=== PATIENT | male | born 1960 | race Caucasian/White ===

== ENCOUNTER 2021-06-18 11:57 | Emergency (ER) | payer MEDICAID ==
[~2021-06-18] VITALS: Ht 188 cm; Wt 98.3 kg
[2021-06-18 14:12] LABS: BASOPHILS % (AUTO) 0 % (0-1); EOSINOPHILS % (AUTO) 2 % (1-7); LYMPHOCYTES % (AUTO) 26 % (22-44); MEAN CORPUSCULAR HEMOGLOBIN 34.2 pg (27.5-34.5); MEAN CORPUSCULAR HGB CONC 35.1 g/dL (33.2-36.2); MEAN PLATELET VOLUME 9.3 fL (7.4-10.4); MONOCYTES % (AUTO) 8 % (2-9); NEUTROPHILS % (AUTO) 64 % (42-75); PLATELET COUNT 228 x10^3/uL (130-400); RED BLOOD COUNT 4.71 x10^6/uL (4.38-5.82); RED CELL DISTRIBUTION WIDTH 13.3 % (9.4-14.8)
[2021-06-18 14:14] LABS: ALANINE AMINOTRANSFERASE 55 U/L (12-78); ALBUMIN 3.7 g/dL (3.4-5.0); ANION GAP 4 mmol/L (5-15); CALCIUM 9.2 mg/dL (8.5-10.1); CHLORIDE 108 mmol/L (98-107); CREATININE 1.01 mg/dL (0.7-1.3)
[2021-06-18 14:18] LABS: ALKALINE PHOSPHATASE 59 U/L (45-117); BILIRUBIN,TOTAL 0.4 mg/dL (0.2-1.0); TOTAL PROTEIN 7.9 g/dL (6.4-8.2); TROPONIN I < 0.015 ng/mL (0.000-0.045)
--- NOTE | 2021-06-18 14:43 | NUR ---
[facility] ROOM MANAGER: PT TO ROOM FROM LOBBY
--- NOTE | 2021-06-18 14:55 | NUR ---
FIRST CONTACT: PT HAD OSTOMY PLACED 2 YEARS AGO AND IT HAS SINCE BEEN REMOVED. PT CAME IN TODAY CO LLQ ABD PAIN STARTED YESTERDAY. PT TO ROOM WITH STEADY GAIT. POSTIONED TO COMFORT. VSS. RENNER.
--- NOTE | 2021-06-18 15:21 | NUR ---
PT TO CT.
[2021-06-18] MEDS ORDERED: SODIUM CHLORIDE FLUSH 10ML SYR IVF ONE (15:30)
[2021-06-18] MEDS ORDERED: OMNIPAQUE 350 MG/ML, 100ML BOTTLE ONE (15:32)
--- NOTE | 2021-06-18 15:34 | NUR ---
pt back from ct. vss. aguilar.
[2021-06-18 15:40] LABS: MICROSCOPIC INDICATED
[2021-06-18 17:02] VITALS: BP 138/84
== END 2021-06-18 17:04 | disposition home or self-care (01) ==
LOC: ED 15:40
DX: R10.32 Left lower quadrant pain (principal); R11.0 Nausea
CPT/HCPCS: 36415; 71045; 74177; 80053; 81001; 83690; 84484; 85025; 93005; 99285; Q9967